=== PATIENT | female | born 2000 | race Caucasian/White ===

== ENCOUNTER 2022-01-11 22:51 | Emergency (ER) | payer OTHER ==
[~2022-01-11] VITALS: Ht 170.2 cm; Wt 62.6 kg
[2022-01-11] MEDS ORDERED: ORTHO TRI-CYCL1 EACH PO (23:05)
[2022-01-11] MEDS ORDERED: HYDROCODON-ACE1 EA10 PO (23:25)
[2022-01-11] MEDS ORDERED: CEPHALEXIN500 MG PO (23:25)
[2022-01-11] MEDS ORDERED: PYRIDIUM200 MG PO (23:25)
== END 2022-01-11 23:39 | disposition home or self-care (01) ==
LOC: ED 22:51
DX: N39.0 Urinary tract infection, site not specified (principal); N12 Tubulo-interstitial nephritis, not specified as acute or chronic; Z79.899 Other long term (current) drug therapy
CPT/HCPCS: 81001; 84703; 87088; 99284; A9270